=== PATIENT | female | born 1995 | race Caucasian/White ===

== ENCOUNTER 2021-10-10 21:19 | Inpatient (IN) ==
[2021-10-10] MEDS ORDERED: Ringers Solution, Lactated 1,000 ML ONE (22:06)
[2021-10-10] MEDS ORDERED: Ringers Solution, Lactated 1,000 ML IVC ONE (22:13)
[2021-10-10] MEDS ORDERED: CeFAZolin 2 GM/100 ML BAG IVPB ONE (22:13)
[2021-10-10] MEDS ORDERED: Metoclopramide 10 MG/2 ML VIAL IVP ONE (22:13)
[2021-10-10] MEDS ORDERED: Famotidine 20 MG/2 ML VIAL IVP ONE (22:13)
[2021-10-10] MEDS ORDERED: Ondansetron 4 MG/2 ML VIAL IVP PRN (22:17)
[2021-10-10] MEDS ORDERED: *HR* HYDROmorphone PF 0.5 MG/0.5 ML SYRINGE IVP PRN (22:17)
[2021-10-10] MEDS ORDERED: Promethazine 6.25 MG in Water for inj. (sterile) 20 ML IVPB PRN (22:17)
[2021-10-10 22:45] LABS: Basophils % 0.4 %; Eosinophils # 0.2 K/mcL (0.0-0.6); Eosinophils % 1.8 %; Hematocrit 37.8 % (35.3-44.9); Hemoglobin 12.2 g/dL (11.5-15.4); Immature Granulocytes % 0.2 % (0-4); Lymphocytes # 3.7 K/mcL (0.6-4.6); Lymphocytes % 36.5 %; Mean Corpuscular HGB Conc 32.3 g/dL (31.6-35.5); Mean Corpuscular Hemoglobin 27.2 pg (28.0-33.3); Mean Corpuscular Volume 84.4 fL (83.0-100.0); Mean Platelet Volume 11.4 fL (9.4-12.4); Monocytes # 0.9 K/mcL (0.0-1.3); Monocytes % 8.6 %; Neutrophils # 5.4 K/mcL (1.6-8.9); Platelet Count 320 K/mcL (140-400); Red Blood Count 4.48 M/mcL (3.82-4.97); Red Cell Distribution Width 13.7 % (11.5-14.5); Segmented Neutrophils % 52.5 %; White Blood Count 10.2 K/mcL (4.3-11.1)
[2021-10-10 22:55] LABS: Amphetamine Screen,Urine Negative ng/mL (Cutoff=1000); Barbiturate Screen,Urine Negative ng/mL (Cutoff=200); Benzodiazepines Screen,Urine Negative ng/mL (Cutoff=200); Cannabinoid Screen,Urine Negative ng/mL (Cutoff = 50); Cocaine Screen,Urine Negative ng/mL (Cutoff= 300); Opiate Screen,Urine Negative ng/mL (Cutoff=300); Phencyclidine Screen,Urine Negative ng/mL (Cutoff=25)
[2021-10-10 23:17] LABS: Influenza A PCR Negative (Negative); Influenza B PCR Negative (Negative); Resp. Syncytial Virus PCR Negative (Negative); SARS-CoV-2 by PCR (In House) Negative (Negative)
[2021-10-10] MEDS ORDERED: *HR* FentaNYL (PF) 100 MCG/2 ML VIAL ONE (23:36)
[2021-10-10] MEDS ORDERED: Ondansetron 4 MG/2 ML VIAL ONE (23:36)
[2021-10-10] MEDS ORDERED: *HR* Morphine Sulfate/PF 10 MG/10 ML AMPUL ONE (23:36)
[2021-10-10] MEDS ORDERED: EPHEDrine 50 MG/ML VIAL ONE (23:36)
[2021-10-10] MEDS ORDERED: Acetaminophen IV 1,000 MG/100 ML BAG IVPB ONE (23:38)
[2021-10-10] MEDS ORDERED: *HR* Phenylephrine 10 MG/ML VIAL ONE (23:38)
[2021-10-10] MEDS ORDERED: Ketorolac 30 MG/ML VIAL ONE (23:38)
[2021-10-11] MEDS ORDERED: Oxytocin 30 UNIT/503 ML BAG IVC ONE (00:12)
[2021-10-11] MEDS ORDERED: Methylergonovine 0.2 MG/ML AMPUL IM ONE (01:00)
[2021-10-11] MEDS ORDERED: Metoclopramide 10 MG/2 ML VIAL IVP PRN (04:42)
[2021-10-11] MEDS ORDERED: Simethicone 80 MG TAB.CHEW PO PRN (04:42)
[2021-10-11] MEDS ORDERED: Acetaminophen IV 500 MG/50 ML BAG IVPB ONE ×2 (04:42→11:00)
[2021-10-11] MEDS ORDERED: Ringers Solution, Lactated 1,000 ML IVC SCH (04:42)
[2021-10-11] MEDS ORDERED: Ondansetron 4 MG/2 ML VIAL IVP PRN (04:42)
[2021-10-11] MEDS ORDERED: Ketorolac 30 MG/ML VIAL IVP PRN (04:42)
[2021-10-11] MEDS: Ibuprofen 600 MG TABLET PO SCH ×3 (05:05→19:40)
[2021-10-11] MEDS: Acetaminophen 325 MG TABLET PO SCH ×3 (05:05→19:40)
[2021-10-11] MEDS ORDERED: CeFAZolin 2 GM/100 ML BAG IVPB SCH ×2 (08:00→20:15)
[2021-10-11] MEDS: metroNIDAZOLE 500 MG TABLET PO SCH ×3 (08:50→19:39)
[2021-10-11] MEDS: Prenatal Vit/FA 1 EACH TABLET PO SCH (08:50)
[2021-10-11] MEDS: *HR* OxyCODONE Immed Rel 5 MG TABLET PO PRN ×2 (08:51→20:32)
[2021-10-11] MEDS ORDERED: MULTIVITAMIN PO SCH (09:00)
[2021-10-11] MEDS ORDERED: CeFAZolin 2,000 MG/120 ML BAG IVPB SCH (18:00)
[2021-10-12] MEDS: Ibuprofen 600 MG TABLET PO SCH ×5 (03:05→20:56)
[2021-10-12] MEDS: Acetaminophen 325 MG TABLET PO SCH ×5 (03:05→20:56)
[2021-10-12 03:42] LABS: Basophils # 0.1 K/mcL (0.0-0.2); Basophils % 0.4 %; Eosinophils # 0.2 K/mcL (0.0-0.6); Immature Granulocytes % 0.4 % (0-4); Lymphocytes # 3.5 K/mcL (0.6-4.6); Lymphocytes % 29.7 %; Mean Corpuscular HGB Conc 31.9 g/dL (31.6-35.5); Mean Corpuscular Volume 84.6 fL (83.0-100.0); Monocytes % 8.6 %; Neutrophils # 6.9 K/mcL (1.6-8.9); Platelet Count 246 K/mcL (140-400); Red Blood Count 3.19 M/mcL (3.82-4.97); Red Cell Distribution Width 14.1 % (11.5-14.5); Segmented Neutrophils % 58.9 %; White Blood Count 11.7 K/mcL (4.3-11.1)
[2021-10-12 03:43] LABS: Hemoglobin 8.6 g/dL (11.5-15.4)
[2021-10-12] MEDS ORDERED: CeFAZolin 2,000 MG/120 ML BAG IVPB SCH (04:00)
[2021-10-12] MEDS: *HR* OxyCODONE Immed Rel 5 MG TABLET PO PRN (05:51)
[2021-10-12] MEDS: metroNIDAZOLE 500 MG TABLET PO SCH ×3 (09:20→20:54)
[2021-10-12] MEDS: Prenatal Vit/FA 1 EACH TABLET PO SCH (09:20)
[2021-10-13] MEDS: Acetaminophen 325 MG TABLET PO SCH ×3 (02:36→18:11)
[2021-10-13] MEDS: Ibuprofen 600 MG TABLET PO SCH ×3 (02:36→18:09)
[2021-10-13] MEDS: Prenatal Vit/FA 1 EACH TABLET PO SCH (09:08)
[2021-10-13] MEDS: *HR* OxyCODONE Immed Rel 5 MG TABLET PO PRN ×2 (18:09→22:32)
[2021-10-13 22:09] VITALS: O2SAT 99
[2021-10-14] MEDS: Ibuprofen 600 MG TABLET PO SCH ×2 (03:04→09:53)
[2021-10-14] MEDS: Acetaminophen 325 MG TABLET PO SCH ×2 (03:04→09:53)
[2021-10-14] MEDS: *HR* OxyCODONE Immed Rel 5 MG TABLET PO PRN ×2 (06:23→11:34)
[2021-10-14 07:28] VITALS: BP 100/65; PULSE 78; TEMP 98.2
[2021-10-14] MEDS: Prenatal Vit/FA 1 EACH TABLET PO SCH (08:57)
== END 2021-10-14 11:46 | disposition home or self-care (01) | DRG 539 ==
LOC: 1NENULAB 21:19 → 1NENUOBS 10-11 04:00
PROVIDERS: ADMIT Obstetrics & Gynecology; ATTEND Obstetrics & Gynecology